=== PATIENT | male | born 1955 | race Caucasian/White ===

== ENCOUNTER 2019-08-03 12:32 | Inpatient (IN) | payer MEDICAID ==
[~2019-08-03] VITALS: Ht 177.8 cm; Wt 91.2 kg
[2019-08-03 13:11] LABS: BASOPHILS % (AUTO) 0.1 % (0.0-2.0); EOSINOPHILS % (AUTO) 0 % (1.0-6.0); HEMOGLOBIN 12.4 g/dL (13.5-17.5); LYMPHOCYTES # (AUTO) 2.7 K/uL (1.0-4.8); LYMPHOCYTES % (AUTO) 10.5 % (22.0-44.0); MEAN CORPUSCULAR HEMOGLOBIN 28.7 pg (26.0-34.0); MEAN CORPUSCULAR HGB CONC 32.6 G/dL (31.0-37.0); MEAN CORPUSCULAR VOLUME 88 fL (80-100); MONOCYTES % (AUTO) 7.7 % (2.0-9.0); NEUTROPHILS # (AUTO) 21.2 K/uL (1.8-7.7); NEUTROPHILS % (AUTO) 81.7 % (40.0-70.0); PLATELET COUNT (AUTO) 222 K/uL (150-450); RED BLOOD CELL COUNT(AUTO) 4.31 MIL/uL (4.50-5.90); RED CELL DISTRIBUTION WIDTH 13.5 % (11.5-14.5)
[2019-08-03 13:16] LABS: CALCIUM, TOTAL 8.6 mg/dL (8.8-10.5); CREATININE 1.6 mg/dL (0.60-1.30); POTASSIUM 3.3 mmol/L (3.5-5.1)
[2019-08-03 13:23] LABS: ALBUMIN 3.2 g/dL (3.4-5.0); BILIRUBIN,TOTAL 0.8 mg/dL (0.1-1.0); TOTAL PROTEIN, SERUM 6.5 g/dL (6.4-8.2)
[2019-08-03 15:32] LABS: APPEARANCE,URINE CLOUDY (CLEAR); GLUCOSE, URINE (UA) NEGATIVE (NEGATIVE); KETONES,URINE NEGATIVE (NEGATIVE); LEUKOCYTE ESTERASE ,URINE NEGATIVE (NEGATIVE); NITRATE,URINE NEGATIVE (NEGATIVE); OCCULT BLOOD,URINE NEGATIVE (NEGATIVE); PH,URINE 5.5 (5.0-8.0); PROTEIN,URINE SEE CONFIRM (NEGATIVE); UROBILINOGEN,URINE 0.2 mg/dL (<=1.0)
[2019-08-03 15:35] LABS: BILIRUBIN,URINE PRELIM. POSITIVE (NEGATIVE)
[2019-08-03 15:40] LABS: SULFOSALICYLIC ACID,URINE 1+ (Negative)
[2019-08-03 15:42] LABS: RBC,URINE None Seen /HPF (0-2)
[2019-08-03 15:43] LABS: BACTERIA,URINE Rare /HPF (None Seen); SQUAMOUS EPITHELIAL CELL,UR Rare /LPF (None Seen); WBC,URINE 0-2 /HPF (0-5); YEAST,URINE Rare /HPF (None Seen)
[2019-08-03] MEDS ORDERED: SODIUM CHLORIDE 0.9% 2,850 ML IV ONE (15:48)
[2019-08-03] MEDS ORDERED: SODIUM CHLORIDE 0.9% 1,000 ML ONE (15:50)
[2019-08-03] MEDS ORDERED: ONDANSETRON HCL 4 MG/2 ML VIAL IVP ONE (16:00)
[2019-08-03] MEDS ORDERED: 0.9% SODIUM CHLORIDE 10 ML SYRINGE IVP PRN ×2 (16:00→17:45)
[2019-08-03] MEDS ORDERED: PIPERACILLIN SODIUM/TAZOBACTAM 4.5 GM in DEXTROSE 5%-WATER 100 ML IV ONE (16:00)
[2019-08-03] MEDS ORDERED: ACETAMINOPHEN 325 MG TABLET PO ONE (16:00)
[2019-08-03] MEDS ORDERED: VANCOMYCIN HCL 1 GM/D5% WATER 200 ML IV ONE (16:00)
[2019-08-03] MEDS ORDERED: FentaNYL CITRATE-PF 100 MCG/2 ML VIAL IVP ONE ×2 (16:00→20:15)
[2019-08-03 16:31] LABS: INR 1.1 (0.9-1.1); PROTHROMBIN TIME 10.8 SEC (9.4-11.6)
[2019-08-03 16:34] LABS: CREATINE KINASE, TOTAL ONLY 33 U/L (39-308); GLUCOSE,RANDOM 103 mg/dL (70-110)
[2019-08-03 16:43] LABS: B-TYPE NATRIURETIC PEPTIDE 183 pg/mL (0-100); LACTIC ACID 4.1 mmol/L (0.4-2.0)
[2019-08-03] MEDS ORDERED: NOREPINEPHRINE 4 MG/D5%-WATER 250 ML IV PRN (17:20)
[2019-08-03] MEDS ORDERED: OSELTAMIVIR PHOSPHATE 75 MG CAPSULE PO ONE (17:45)
[2019-08-03] MEDS ORDERED: ACETAMINOPHEN 325 MG TABLET PO PRN (17:45)
[2019-08-03] MEDS ORDERED: ONDANSETRON HCL 4 MG/2 ML VIAL IVP PRN (17:45)
[2019-08-03] MEDS ORDERED: SODIUM CHLORIDE 0.9% 1,000 ML IV ONE (18:15)
[2019-08-03 18:40] LABS: INFLUENZA TYPE A NEGATIVE FOR TYPE A (NEGATIVE); INFLUENZA TYPE B NEGATIVE FOR TYPE B (NEGATIVE)
[2019-08-03 19:03] LABS: ABG A-A DIFF O2 93.6 mmHg (10-20.0); ABG BASE EXCESS -4.2 mmol/L (-2.0-3.0); ABG CARBOXYHEMOGLOBIN 0.5 % (0.0-1.5); ABG HCO3 21.5 mmol/L (22.0-26.0); ABG METHEMOGLOBIN 0.2 % (0.0-1.5); ABG OXYGEN CONTENT 15.4 mL/dL (15.0-23.0); ABG OXYGEN SATURATION 93.3 % (95.0-98.0); ABG OXYHEMOGLOBIN 92.6 % (94.0-100.0); ABG PCO2 33 mmHg (35-45); ABG PH 7.412 (7.35-7.450); ABG TOTAL HEMOGLOBIN 11.8 G/dL (12.0-18.0); PO2, ARTERIAL BG 67.3 mmHg (79.0-87.0); SOURCE, BLOOD GAS ARTERIAL
[2019-08-03 19:04] LABS: SITE, BLOOD GAS RT RADIAL
[2019-08-03 19:05] LABS: O2 DEVICE,BLOOD GAS CANNULA (ROOM AIR)
[2019-08-03] MEDS ORDERED: LEVOFLOXACIN 750 MG/D5% WATER 150 ML IV ONE (20:15)
[2019-08-03] MEDS ORDERED: IBUPROFEN 800 MG TABLET PO ONE (20:15)
[2019-08-04] MEDS: NOREPINEPHRINE 4 MG/D5%-WATER 250 ML IV PRN ×3 (01:30→06:40)
[2019-08-04] MEDS ORDERED: ACETAMINOPHEN 325 MG TABLET PO PRN (02:30)
[2019-08-04] MEDS ORDERED: MAGNESIUM HYDROXIDE SUSPENSION 30 ML UDCUP PO PRN (02:30)
[2019-08-04] MEDS ORDERED: OxyCODONE HCL/ACETAMINOPHEN 5-325 MG TABLET PO PRN ×2 (02:30)
[2019-08-04] MEDS ORDERED: *CLINICAL-LEVOFLOXACIN IVPB DOSING CLINICAL ONE (02:30)
[2019-08-04] MEDS ORDERED: ONDANSETRON HCL 4 MG/2 ML VIAL IVP PRN (02:30)
[2019-08-04] MEDS ORDERED: 0.9% SODIUM CHLORIDE 10 ML SYRINGE IVP PRN (02:30)
[2019-08-04] MEDS ORDERED: PIPERACILLIN/TAZO 3.375 GM/D5W 50 ML IV ONE (03:00)
[2019-08-04 08:11] LABS: HEMATOCRIT 37.5 % (41-53); HEMOGLOBIN 12.4 g/dL (13.5-17.5); MEAN CORPUSCULAR HEMOGLOBIN 29.2 pg (26.0-34.0); MEAN CORPUSCULAR VOLUME 89 fL (80-100); PLATELET COUNT (AUTO) 231 K/uL (150-450); RED BLOOD CELL COUNT(AUTO) 4.23 MIL/uL (4.50-5.90); RED CELL DISTRIBUTION WIDTH 13.7 % (11.5-14.5)
[2019-08-04 08:21] LABS: ALBUMIN 2.8 g/dL (3.4-5.0); BILIRUBIN,TOTAL 0.7 mg/dL (0.1-1.0); CALCIUM, TOTAL 7.8 mg/dL (8.8-10.5); CREATININE 3.37 mg/dL (0.60-1.30); POTASSIUM 4.6 mmol/L (3.5-5.1); TOTAL PROTEIN, SERUM 6.4 g/dL (6.4-8.2)
[2019-08-04 08:36] LABS: LACTIC ACID 3.4 mmol/L (0.4-2.0)
[2019-08-04 08:50] LABS: GLUCOSE,POINT OF CARE 127 MG/DL (70-110)
[2019-08-04] MEDS ORDERED: PIPERACILLIN/TAZO 3.375 GM/D5W 50 ML IV SCH (09:00)
[2019-08-04 09:36] LABS: BAND NEUTROPHILS % (MANUAL) 24 % (0-5); LYMPHOCYTES % (MANUAL) 4 % (22-44); SEGMENTED NEUTROPHILS % 72 % (40-70)
[2019-08-04] MEDS ORDERED: SODIUM CHLORIDE 0.9% 250 ML IV ONE ×2 (09:45→20:18)
[2019-08-04] MEDS: DOCUSATE SODIUM 100 MG CAPSULE PO SCH ×2 (09:46→20:35)
[2019-08-04] MEDS: FAMOTIDINE 10 MG/ML 2 ML VIAL IVP SCH (09:47)
[2019-08-04 12:00] VITALS: BP 116/61
[2019-08-04] MEDS ORDERED: PNEUMOCOCCAL VACCINE POLYVALENT 0.5 ML VIAL [PPSV23] IM ONE (12:45)
[2019-08-04] MEDS: SODIUM CHLORIDE 0.9% 1,000 ML IV SCH (12:57)
[2019-08-04] MEDS ORDERED: VANCOMYCIN HCL 1 GM/D5% WATER 200 ML IV PRN (14:15)
[2019-08-04] MEDS: PIPERACILLIN SODIUM/TAZOBACTAM 2.25 GM in DEXTROSE 5%-WATER 50 ML IV SCH ×2 (14:32→20:36)
[2019-08-04] MEDS ORDERED: VANCOMYCIN HCL 1.5 GM in DEXTROSE 5%-WATER 250 ML IV ONE (15:00)
[2019-08-04 16:00] VITALS: BP 112/63
[2019-08-04 19:00] VITALS: BP 116/56
[2019-08-04 20:31] VITALS: BP 111/66
[2019-08-04] MEDS ORDERED: LEVOFLOXACIN 750 MG/D5% WATER 150 ML IV SCH (21:00)
[2019-08-04 23:50] VITALS: BP 111/61
[2019-08-05] MEDS: SODIUM CHLORIDE 0.9% 1,000 ML IV SCH ×2 (01:04→15:42)
[2019-08-05] MEDS: PIPERACILLIN SODIUM/TAZOBACTAM 2.25 GM in DEXTROSE 5%-WATER 50 ML IV SCH (03:41)
[2019-08-05 04:47] VITALS: BP 122/63
[2019-08-05 06:37] LABS: BASOPHILS % (AUTO) 0.2 % (0.0-2.0); EOSINOPHILS % (AUTO) 0.5 % (1.0-6.0); HEMATOCRIT 33.9 % (41-53); HEMOGLOBIN 11.1 g/dL (13.5-17.5); LYMPHOCYTES # (AUTO) 1.6 K/uL (1.0-4.8); LYMPHOCYTES % (AUTO) 7.4 % (22.0-44.0); MEAN CORPUSCULAR HEMOGLOBIN 28.7 pg (26.0-34.0); MEAN CORPUSCULAR HGB CONC 32.9 G/dL (31.0-37.0); MEAN CORPUSCULAR VOLUME 87 fL (80-100); MONOCYTES # (AUTO) 0.7 K/uL (0.1-1.0); MONOCYTES % (AUTO) 3.2 % (2.0-9.0); NEUTROPHILS # (AUTO) 18.9 K/uL (1.8-7.7); PLATELET COUNT (AUTO) 196 K/uL (150-450); RED BLOOD CELL COUNT(AUTO) 3.88 MIL/uL (4.50-5.90); RED CELL DISTRIBUTION WIDTH 13.9 % (11.5-14.5)
[2019-08-05 06:55] LABS: NEUTROPHILS % (AUTO) 88.7 % (40.0-70.0)
[2019-08-05 07:14] LABS: CALCIUM, TOTAL 8.3 mg/dL (8.8-10.5); CREATININE 1.74 mg/dL (0.60-1.30); MAGNESIUM 1.9 mg/dL (1.80-2.40); PHOSPHORUS 3.4 mg/dL (2.5-4.9); POTASSIUM 3.6 mmol/L (3.5-5.1); VANCOMYCIN,RANDOM 10.2 mcg/mL (25.0-50.0)
[2019-08-05 07:44] VITALS: BP 133/80
[2019-08-05] MEDS ORDERED: VANCOMYCIN HCL 1.5 GM in DEXTROSE 5%-WATER 250 ML IV SCH (08:00)
[2019-08-05] MEDS: FAMOTIDINE 10 MG/ML 2 ML VIAL IVP SCH (08:55)
[2019-08-05] MEDS: DOCUSATE SODIUM 100 MG CAPSULE PO SCH ×2 (08:55→20:06)
[2019-08-05] MEDS: PIPERACILLIN/TAZO 3.375 GM/D5W 50 ML IV SCH ×3 (11:34→22:45)
[2019-08-05 11:48] VITALS: BP 127/68
[2019-08-05 13:21] LABS: CREATININE,URINE RANDOM 65.4 mg/dL (30.0-125.0); SODIUM,URINE RANDOM 65 mmol/l (20-110); UREA NITROGEN,URINE RANDOM 457 mg/dL (350-1000)
[2019-08-05 13:23] LABS: APPEARANCE,URINE CLOUDY (CLEAR); BILIRUBIN,URINE NEGATIVE (NEGATIVE); GLUCOSE, URINE (UA) NEGATIVE (NEGATIVE); KETONES,URINE NEGATIVE (NEGATIVE); LEUKOCYTE ESTERASE ,URINE NEGATIVE (NEGATIVE); NITRATE,URINE NEGATIVE (NEGATIVE); OCCULT BLOOD,URINE MODERATE (NEGATIVE); PH,URINE 5.5 (5.0-8.0); PROTEIN,URINE POS 1+ (NEGATIVE); UROBILINOGEN,URINE 0.2 mg/dL (<=1.0)
[2019-08-05 13:35] LABS: BACTERIA,URINE None Seen /HPF (None Seen); WBC,URINE 0-2 /HPF (0-5)
[2019-08-05 15:49] VITALS: BP 125/74
[2019-08-05 19:40] VITALS: BP 140/73
[2019-08-05] MEDS ORDERED: LEVOFLOXACIN 750 MG/D5% WATER 150 ML IV SCH (21:00)
[2019-08-06 00:03] VITALS: BP 130/78
[2019-08-06] MEDS: PIPERACILLIN/TAZO 3.375 GM/D5W 50 ML IV SCH ×4 (03:31→22:40)
[2019-08-06 04:31] VITALS: BP 142/85
[2019-08-06] MEDS: SODIUM CHLORIDE 0.9% 1,000 ML IV SCH ×2 (04:42→18:18)
[2019-08-06 06:31] LABS: CALCIUM, TOTAL 8.4 mg/dL (8.8-10.5); CREATININE 1.36 mg/dL (0.60-1.30); MAGNESIUM 2.1 mg/dL (1.80-2.40); PHOSPHORUS 3.4 mg/dL (2.5-4.9); POTASSIUM 3.6 mmol/L (3.5-5.1)
[2019-08-06 07:33] VITALS: BP 149/80
[2019-08-06] MEDS: FAMOTIDINE 10 MG/ML 2 ML VIAL IVP SCH (07:40)
[2019-08-06] MEDS: DOCUSATE SODIUM 100 MG CAPSULE PO SCH ×2 (07:41→21:03)
[2019-08-06] MEDS ORDERED: VANCOMYCIN HCL 1 GM/D5% WATER 200 ML IV SCH (08:00)
[2019-08-06 11:12] VITALS: BP 143/84
[2019-08-06 15:37] VITALS: BP 155/82
[2019-08-06 20:10] VITALS: BP 155/80
[2019-08-06] MEDS ORDERED: LEVOFLOXACIN 750 MG/D5% WATER 150 ML IV SCH (21:00)
[2019-08-07 00:26] VITALS: BP 153/77
[2019-08-07 04:14] VITALS: BP 149/74
[2019-08-07 06:10] LABS: BASOPHILS % (AUTO) 0.3 % (0.0-2.0); EOSINOPHILS % (AUTO) 3.5 % (1.0-6.0); HEMATOCRIT 33.8 % (41-53); HEMOGLOBIN 11.3 g/dL (13.5-17.5); LYMPHOCYTES # (AUTO) 1.5 K/uL (1.0-4.8); LYMPHOCYTES % (AUTO) 19.5 % (22.0-44.0); MEAN CORPUSCULAR HEMOGLOBIN 29.1 pg (26.0-34.0); MEAN CORPUSCULAR HGB CONC 33.4 G/dL (31.0-37.0); MEAN CORPUSCULAR VOLUME 87 fL (80-100); MONOCYTES # (AUTO) 0.9 K/uL (0.1-1.0); MONOCYTES % (AUTO) 11.9 % (2.0-9.0); NEUTROPHILS # (AUTO) 4.9 K/uL (1.8-7.7); NEUTROPHILS % (AUTO) 64.8 % (40.0-70.0); PLATELET COUNT (AUTO) 201 K/uL (150-450); RED BLOOD CELL COUNT(AUTO) 3.88 MIL/uL (4.50-5.90)
[2019-08-07 06:55] LABS: ANION GAP 9 mmol/L (8-16); CALCIUM, TOTAL 8.8 mg/dL (8.8-10.5); CARBON DIOXIDE 26 mmol/L (22-29); CHLORIDE 109 mmol/L (98-107); CREATININE 1.14 mg/dL (0.60-1.30); GLOMERULAR FILTR. RATE CALC > 60 mL/min (>60); GLUCOSE,RANDOM 97 mg/dL (70-110); POTASSIUM 3.9 mmol/L (3.5-5.1); SODIUM SERUM 144 mmol/L (136-145); UREA NITROGEN, BLOOD 7 mg/dL (7-18)
[2019-08-07 08:00] VITALS: BP 148/80
[2019-08-07] MEDS: DOCUSATE SODIUM 100 MG CAPSULE PO SCH (09:20)
[2019-08-07] MEDS: FAMOTIDINE 10 MG/ML 2 ML VIAL IVP SCH (09:28)
[2019-08-07] MEDS: PIPERACILLIN/TAZO 3.375 GM/D5W 50 ML IV SCH ×2 (09:35→10:40)
[2019-08-07 11:33] VITALS: BP 152/80
[2019-08-07] MEDS ORDERED: AMOX1TAB16 PO (13:11)
[2019-08-07] MEDS ORDERED: LEVO750T21 PO (13:12)
[2019-08-07] MEDS: SODIUM CHLORIDE 0.9% 1,000 ML IV SCH (14:00)
[2019-08-08 10:58] LABS: ORGANISM ID Not indicated.; S PNEUMO SOURCE Urine; STREP PNEUMONIAE AG URINE Negative (Negative); STREP.PNEUMO BODY FLUID CULT. Not indicated.
[2019-08-09 21:47] LABS: LEGIONELLA PNEUMO AG URINE Negative (Negative)
== END 2019-08-07 14:37 | disposition home or self-care (01) | DRG 871 ==
LOC: EMS 12:35 → ICU 08-04 05:44 → 5S 08-04 18:40
PROVIDERS: ADMIT Internal Medicine; ATTEND Internal Medicine
DX: A41.9 Sepsis, unspecified organism (principal); R65.21 Severe sepsis with septic shock; N17.0 Acute kidney failure with tubular necrosis; J18.1 Lobar pneumonia, unspecified organism; E87.1 Hypo-osmolality and hyponatremia; E44.0 Moderate protein-calorie malnutrition; E87.2 Acidosis; E87.6 Hypokalemia; R19.7 Diarrhea, unspecified; R80.9 Proteinuria, unspecified; E86.0 Dehydration; D64.9 Anemia, unspecified; K21.9 Gastro-esophageal reflux disease without esophagitis; Z82.49 Family history of ischemic heart disease and other diseases of the circulatory system; Z83.3 Family history of diabetes mellitus; Z68.28 Body mass index [BMI] 28.0-28.9, adult
CPT/HCPCS: 36600; 71250; 72192; 74150; 82570; 82805; 82947; 83605; 83735; 84100; 84300; 84540; 87040; 87070; 87081; 87205; 87449; 87804; 87899; 93005; 99291; J1956; J2405; J2543; J3010; J3370; J3490; J7030; J7050; J7060

== ENCOUNTER 2024-05-03 17:39 | Emergency (ER) | payer OTHER ==
[~2024-05-03] VITALS: Ht 167.6 cm; Wt 100.0 kg
[~2024-05-03 17:39] MED LIST: AMOX-457 PO; LEVO750T21 PO
[2024-05-03] MEDS ORDERED: LISI40TA9 PO (18:03)
[2024-05-03 21:00] VITALS: BP 135/68; PULSE 72; RESP 20; TEMP 98.3; O2SAT 100
[2024-05-03] MEDS: ACETAMINOPHEN 500 MG TABLET PO ONE (21:17)
== END 2024-05-03 21:51 | disposition home or self-care (01) ==
LOC: EMS 17:39
DX: S43.52XA Sprain of left acromioclavicular joint, initial encounter (principal); W22.8XXA Striking against or struck by other objects, initial encounter; Y93.89 Activity, other specified; Y92.89 Other specified places as the place of occurrence of the external cause; Y99.8 Other external cause status
CPT/HCPCS: 29105; 73050; 99284; 73030-TC; Z7502; Z7610

== ENCOUNTER 2024-08-30 08:46 | Emergency (ER) | payer OTHER ==
[~2024-08-30] VITALS: Ht 167.6 cm; Wt 81.0 kg
[~2024-08-30 08:46] MED LIST changes: -AMOX-457 PO; -LEVO750T21 PO; +LISI40TA9 PO
[2024-08-30 08:54] VITALS: BP 151/71; TEMP 98.6
[2024-08-30 09:43] LABS: COVID AG,FIA SOURCE NASAL SWAB
[2024-08-30 10:19] LABS: SARS-COV2 (COVID) ANTIGEN,FIA Negative (Negative)
[2024-08-30 10:20] LABS: INFLUENZA TYPE B NEGATIVE FOR TYPE B (NEGATIVE)
[2024-08-30 10:25] LABS: INFLUENZA TYPE A POSITIVE FOR TYPE A (NEGATIVE)
[2024-08-30] MEDS ORDERED: HYDR25TA PO (11:23)
[2024-08-30] MEDS ORDERED: ATOR-2 PO (11:23)
[2024-08-30] MEDS ORDERED: OSEL75CA45 PO (13:47)
[2024-08-30] MEDS ORDERED: AZIT250T9 PO (13:47)
[2024-08-30] MEDS: ALBUTEROL SULFATE HFA 90 MCG/PUFF 8 GM INHALER IH ONE (14:45)
[2024-08-30 14:47] VITALS: PULSE 86; RESP 16; O2SAT 95
[2024-08-30 14:50] VITALS: PULSE 86; RESP 16; O2SAT 95
== END 2024-08-30 15:06 | disposition home or self-care (01) ==
LOC: EMS 08:46
DX: J10.1 Influenza due to other identified influenza virus with other respiratory manifestations (principal); E78.00 Pure hypercholesterolemia, unspecified; I10 Essential (primary) hypertension; M54.9 Dorsalgia, unspecified; Z20.822 Contact with and (suspected) exposure to COVID-19
CPT/HCPCS: 99284; 71045; 87426; 87804; 94640; J3535

== ENCOUNTER → 2024-11-21 | Emergency (ER) | payer OTHER ==
[~2024-11-21] VITALS: Ht 162.6 cm; Wt 100.0 kg
[~2024-11-21] MED LIST changes: +ATOR-2 PO; +HYDR25TA PO; +IBUP-1492 PO; +OSEL75CA45 PO
[2024-11-21 11:40] VITALS: TEMP 98.3
[2024-11-21 14:45] VITALS: BP 142/81; PULSE 88; RESP 20; O2SAT 96
== END | disposition still patient (30) ==
LOC: EMS 11:33
DX: S93.402A Sprain of unspecified ligament of left ankle, initial encounter (principal); I10 Essential (primary) hypertension; E78.00 Pure hypercholesterolemia, unspecified; Z79.899 Other long term (current) drug therapy; W23.1XXA Caught, crushed, jammed, or pinched between stationary objects, initial encounter; Y93.89 Activity, other specified; Y92.89 Other specified places as the place of occurrence of the external cause; Y99.8 Other external cause status
CPT/HCPCS: 29515; 99284